=== PATIENT | male | born 1990 | race Caucasian/White ===

== ENCOUNTER 2016-04-17 01:45 | Inpatient (IN) | payer OTHER ==
[~2016-04-17] VITALS: Ht 185.4 cm; Wt 123.6 kg
[~2016-04-17 01:45] MED LIST: CIPRO500 MG PO; KEFLEX500 MG PO
[2016-04-17 02:28] LABS: EOSINOPHIL COUNT 0.1 K/uL (0-0.3); HEMATOCRIT 48.2 % (38.0-50.0); IMMATURE GRANULOCYTE (%) 0.7 % (0.0-0.7); IMMATURE GRANULOCYTE COUNT 0.7 K/uL; LYMPHOCYTE COUNT 3.1 K/uL (1.0-2.8); MCH 31.6 PG (29.0-34.0); MCHC 35.9 G/DL (30.0-36.0); MCV 88.1 FL (86-99); MEAN PLAT.VOLUME 9.7 uM^3 (9.0-12.4); MONOCYTE (%) 9.1 % (3-12); NEUTROPHIL (%) 59.7 % (45-76); NEUTROPHIL COUNT 6.3 K/uL (1.8-6.4); PLATELET COUNT 292 K/uL (156-360); RBC DIS.WIDTH-CV 13.6 % (11.8-14.6); RBC DIS.WIDTH-SD 43.5 % (39-53); RED BLOOD COUNT 5.47 M/uL (4.00-5.50); WHITE BLOOD COUNT 10.5 K/uL (4.1-10.2)
[2016-04-17 02:33] LABS: CHLORIDE 107 mEq/L (99-109); POTASSIUM 3.4 mEq/L (3.7-5.4); SODIUM 141 mEq/L (136-147)
[2016-04-17 02:35] LABS: GLUCOSE 116 mg/dL (70-99)
[2016-04-17 02:36] LABS: ANION GAP 18 MEQ/L (2-14)
[2016-04-17 02:37] LABS: TOTAL BILIRUBIN 0.5 mg/dL (0.0-1.0)
[2016-04-17 02:38] LABS: SERUM ETHYL ALCOHOL 187 mg/dL
[2016-04-17 02:39] LABS: ALKALINE PHOSPHATASE 67 IU/L (3-129); GFR ESTIMATE (CALCULATED) > 59 mL/min/
[2016-04-17 02:40] LABS: UREA NITROGEN (BUN) 12 mg/dL (9-23)
[2016-04-17 02:57] LABS: ADD MIUA? NO; BILIRUBIN NEGATIVE; BLOOD NEGATIVE; COLOR STRAW ((YELLOW)); GLUCOSE (STRIP) NEGATIVE; KETONES 5; LEUKOCYTES NEGATIVE; NITRITE NEGATIVE; PROTEIN (STRIP) NEGATIVE; SPECIFIC GRAVITY 1.015 (1.000-1.030); UCUL ADDED? NO; UROBILINOGEN 0.2 MG/DL (0.2-1.0)
[2016-04-17] MEDS ORDERED: B COMPLETE1 EACH PO (04:41)
[2016-04-17 04:49] VITALS: BP 149/68
[2016-04-17 09:10] VITALS: BP 143/65
[2016-04-17] MEDS ORDERED: ASPIRIN EC325 MG PO (12:52)
[2016-04-17] MEDS ORDERED: CRUTCH1 EACH MC (13:00)
[2016-04-17] MEDS ORDERED: AUGMENTIN875 MG PO (13:02)
[2016-04-17 17:02] VITALS: BP 140/69
[2016-04-17 19:40] VITALS: BP 139/63
[2016-04-18] VITALS: BP 143/80
[2016-04-18 04:00] VITALS: BP 143/69
[2016-04-18 08:27] VITALS: BP 133/68
== END 2016-04-18 14:35 | disposition home or self-care (01) | DRG 502 ==
LOC: TRA 01:45 → EDOF 03:07 → 3EAST 03:07 → EDOF 03:07 → 3EAST 04:08
PROVIDERS: Emergency Medicine
DX: S96.821A Laceration of other specified muscles and tendons at ankle and foot level, right foot, initial encounter (principal); S91.311A Laceration without foreign body, right foot, initial encounter; V91.29XA Fall due to collision between unspecified watercraft and other watercraft or other object, initial encounter; Y92.828 Other wilderness area as the place of occurrence of the external cause; F17.200 Nicotine dependence, unspecified, uncomplicated
CPT/HCPCS: 73610; 73630; 73701; 80053; 81003; 85025; 86850; 86900; 86901; 99281; 99285; G0378; G0480; J0690; J1100; J1170; J1200; J1885; J2250; J2405; J3010; J7120; S0020